=== PATIENT | male | born 1985 | race Caucasian/White ===

== ENCOUNTER 2020-03-24 20:29 | Emergency (ER) | payer OTHER, SELFPAY ==
[2020-03-24] VITALS (7 sets, daily range): BP systolic 119–139; BP diastolic 80–93; PULSE 68–105; RESP 16; TEMP 36.3; O2SAT 97–98; BMI 28.8
--- NOTE | 2020-03-24 20:46 | ED_ITS ---
HPI - Male Genitourinary General: Chief complaint: Urogenital-Male Stated complaint: urinating blood Time Seen by Provider: 03/24/20 20:46 Source: patient Mode of arrival: ambulatory Limitations: no limitations History of Present Illness: HPI Narrative: Patient is a 34-year-old male presents to ED today with a complaint of hematuria and left flank pain that began around 4 PM this afternoon. Patient tells me pain seems to be worse with urination. He has not been running any fever/chills. He denies any nausea or vomiting. No history of kidney stones. Denies abdominal pain. MD Complaint: other (L flank pain, hematuria) Onset (ago): hour(s) Duration: constant Location: left flank Severity: moderate Quality: sharp Relieving factors: none Exacerbating factors: urination Associated symptoms: Reports hematuria; Deny nausea or vomiting Review of Systems Const: Denies: fever(s) or chills Card: Denies: chest pain Resp: Denies: dyspnea GI: Denies: abdominal pain, nausea, vomiting, diarrhea or change in bowel habits : Reports: flank pain and hematuria; Denies: difficulty urinating, urinary frequency, urinary urgency, urinary hesitancy, urinary dribbling, genital pain, genital lesions, penile discharge, testicular pain or testicular mass Musc: Denies: neck pain, back pain, extremity pain, extremity swelling, joint pain or joint swelling Physical Exam Const: COMMON NORMALS: no acute distress, average body habitus, patient oriented x3, no limitations, healthy appearing, alert and well nourished Resp: COMMON NORMALS: normal respiratory effort and clear to auscultation bilaterally AUSCULTATION: clear to auscultation bilaterally Cardio: COMMON NORMALS: regular rate and regular rhythm RATE: regular rate RHYTHM: regular rhythm GI: COMMON NORMALS: Normal to inspection, nondistended, normoactive bowel sounds present, Soft to palpation, non-tender, No hepatosplenomegaly present and no masses PALPATION: Yes Soft to palpation and Yes No hepatosplenomegaly present : BLADDER/KIDNEY EXAM: Yes CVA tenderness (just inferior to L flank) Back/Pelvis: GENERAL BACK: Yes CVA tenderness (just inferior to L flank) Neuro: COMMON NORMALS: patient oriented x3 SENSORIUM/ORIENTATION: Yes alert Course Vital Signs: Vital signs: Vital Signs Temperature 97.3 F L 03/24/20 20:40 Pulse Rate 70 03/24/20 23:02 Respiratory Rate 16 03/24/20 23:02 Blood Pressure 126/80 03/24/20 23:02 Pulse Oximetry 97 03/24/20 23:02 MDM - Male MDM Narrative: Medical decision making narrative: Pt with obvious UTI on UA. He is having L sided flank pain so will cover for possible pyelo with Cipro. CT scan with no stone. No stranding around kidney to suggest pyelo. Did have some bladder wall thickening which would be consistent with his UA findings today. Strict return to ED precautions given. He was given 1g Rocephin here. Pt reports he is not sexually active, no penile discharge, or concern for STDs. Lab Data: Labs: Lab Results 03/24/20 03/24/20 03/24/20 Range/Units 21:27 21:27 22:14 WBC 9.2 (4.0-10.0) 10^3/ uL RBC 4.63 (4.1-5.3) 10^6/u L Hgb 14.1 (11.7-16.6) g/dL Hct 41.5 L (42.0-52.0) % MCV 89.6 (80-94) fL MCH 30.5 (28.0-34.0) pg MCHC 34.0 (30.0-36.0) g/dL RDW 11.9 L (12.1-15.1) % Plt Count 258 (130-400) 10^3/c mm MPV 9.9 (7.4-10.4) fL Neut % (Auto) 74.4 % Lymph % (Auto) 16.1 % [place] % (Auto) 7.7 % Eos % (Auto) 0.9 % Baso % (Auto) 0.7 % Neut # (Auto) 6.82 (1.8-7.7) 10^3/u L Lymph # (Auto) 1.5 (0.8-4.8) 10^3/u L [place] # (Auto) 0.7 (0.2-0.9) 10^3/u L Eos # (Auto) 0.1 (0.0-0.8) 10^3/u L Baso # (Auto) 0.1 (0.0-0.1) 10^3/u L Nucleated RBC % (a uto) 0 % Nucleated RBCs # 0.0 /100WBC Sodium 141 (136-145) mmol/L Potassium 3.6 (3.5-5.1) mmol/L Chloride 105 (98-107) mmol/L Carbon Dioxide 25 (22-29) mmol/L Anion Gap 14.6 (5-19) BUN 11 (6-20) mg/dL Creatinine 1.4 H (0.7-1.2) mg/dL GFR Calculation 58.7 L (90-130) mL/min Glucose 107 (65-115) mg/dL Calculated Osmolal ity 289 (285-295) mOsm/k g Calcium 10.1 (8.5-10.5) mg/dL Total Bilirubin 0.4 (0.15-1.2) mg/dL AST 17 (0-40) U/L ALT 16 (0-41) U/L Alkaline Phosphata se 73 (40-130) IU/L Total Protein 7.2 (6.6-8.7) g/dL Albumin 4.9 (3.5-5.2) g/dL Globulin 2.3 (1.3-4.6) g/dL Urine Color Brown (Yellow) Urine Appearance Cloudy (CLEAR) Urine pH 5 (5-7) Ur Specific Gravit y 1.025 (1.005-1.030) Urine Protein 3+ H (Negative) Urine Glucose (UA) Norm (Normal) Urine Ketones Negative (Negative) Urine Blood 3+ H (Negative) Urine Nitrate Positive H (Negative) Urine Bilirubin Neg (NEGATIVE) Urine Urobilinogen 1 H (Negative) mg/dL Ur Leukocyte [place] a[place] 2+ H (Negative) Urine RBC Too numerous to c nt H (0-2) /hpf Urine WBC Too numerous to c nt H (0-5) /hpf Ur Squamous Epith Cells 10-15 H (0-5) Amorphous Sediment Not Reportable Urine Bacteria 2+ H (NONE) Imaging Data: CT Abd/Pel: Radiologist's impression: [address] [address] [address] Scan Report Signed Patient: Matthew Echevarria Jr Unit #: [id number] : 1985 Age/Sex: 34 / M ADM Date: 03/24/20 Loc: ER Room/Bed: Attending Dr: Ordering Provider/Ordering MD: Marcy Lima Date of Service: 03/24/20 Procedure(s): CT kidney stone [address] Accession Number(s): [id number] Report Number: [id number] PROCEDURE INFORMATION: Exam: CT Abdomen And Pelvis Without Contrast Exam date and time: 03/24/2020 9:18 PM Age: 34 years old Clinical indication: Other: Hematuria; Abdominal pain; Flank; Left; Additional info: L flank pain; Hematuria TECHNIQUE: Imaging protocol: Computed tomography of the abdomen and pelvis without contrast. Sagittal and coronal reformatted images were created and reviewed. Radiation optimization: All CT scans at this facility use at least one of these dose optimization techniques: automated exposure control; mA and/or kV adjustment per patient size (includes targeted exams where dose is matched to clinical indication); or iterative reconstruction. COMPARISON: No relevant prior studies available. RADIATION DOSE METRICS: Total DLP (mGy-cm): 1426.45 FINDINGS: Limitations: Evaluation of solid organs and vasculature is limited without intravenous contrast. This is standard protocol for evaluation of possible urolithiasis. Lungs: Visualized lungs are clear. Calcified granulomas in the left lower lobe. Pleural space: No pleural effusion. Heart: Visualized portions of the heart are unremarkable. Liver: The liver is unremarkable. Gallbladder and bile ducts: The gallbladder is unremarkable. No biliary ductal dilatation. Pancreas: The pancreas is unremarkable. No pancreatic ductal dilatation. Spleen: The spleen is unremarkable. Small splenule in the left upper quadrant. Adrenals: The right and left adrenal glands are unremarkable. Kidneys and ureters: The right and left kidneys are unremarkable. The right and left ureters are unremarkable. No hydroureteronephrosis. No calcified urolithiasis. Stomach and bowel: Increased fecal content in the colon. Ingested contents in the stomach. The small bowel is unremarkable. Appendix: The appendix is visualized and is unremarkable. No findings to suggest acute appendicitis. Intraperitoneal space: No free intraperitoneal air. No ascites. No loculated fluid collections to suggest an abscess. Vasculature: No evidence for aortic aneurysm. Lymph nodes: No lymphadenopathy. Bladder: Diffuse, mild wall thickening of the bladder. Reproductive: Unremarkable as visualized. Bones/joints: There is a transitional vertebra at the lumbosacral junction. This is designated as L5. Soft tissues: No acute abnormality in the extra-abdominal soft tissues. CT/CT kidney stone 92192 IMPRESSION: 1. Diffuse, mild wall thickening of the bladder. In the correct clinical setting, this may suggest cystitis. Recommend correlation with laboratory findings. Alternatively, this may be secondary to chronic outlet obstruction. 2. Incidental/nonacute findings are listed in the report. Radiation Dose CTDIVOL = (mGy): DLP = 1426.45 (mGy-cm) Dictated By: Cori Pickard MD Signed By: Cori Pickard MD Signed Date/Time: 03/24/202155 DD/ 54 Discharge Plan Discharge Patient Disposition: Home Clinical Impression: Complicated urinary tract infection Condition: Stable Prescriptions: New Cipro 500 mg tablet 500 mg PO Q12H Qty: 14 RF: 0 Discharge Orders: Discharge Order (Routine); Ordered 03/24/20 Ordered By: Marcy Lima Patient Instructions: Urinary Tract Infection in Men (ED), Acute Pyelonephritis (ED), Flank Pain (ED) Activity Restrictions/Additional Instructions: As discussed you need to return to the emergency department for worsening flank pain, fevers greater than 100.4, nausea/vomiting, inability to keep down your antibiotics, or any other concerns you may have. If symptoms do not improve after antibiotic therapy [facility] and referral to [facility]rology. Coding Level of Care Code ED Color Television Console Monitor for [place]g Fwd Exam Detailed
--- NOTE | 2020-03-24 21:06 | CTR_ITS ---
PROCEDURE INFORMATION: Exam: CT Abdomen And Pelvis Without Contrast Exam date and time: 03/24/2020 9:18 PM Age: 34 years old Clinical indication: Other: Hematuria; Abdominal pain; Flank; Left; Additional info: L flank pain; Hematuria TECHNIQUE: Imaging protocol: Computed tomography of the abdomen and pelvis without contrast. Sagittal and coronal reformatted images were created and reviewed. Radiation optimization: All CT scans at this facility use at least one of these dose optimization techniques: automated exposure control; mA and/or kV adjustment per patient size (includes targeted exams where dose is matched to clinical indication); or iterative reconstruction. COMPARISON: No relevant prior studies available. RADIATION DOSE METRICS: Total DLP (mGy-cm): 1426.45 FINDINGS: Limitations: Evaluation of solid organs and vasculature is limited without intravenous contrast. This is standard protocol for evaluation of possible urolithiasis. Lungs: Visualized lungs are clear. Calcified granulomas in the left lower lobe. Pleural space: No pleural effusion. Heart: Visualized portions of the heart are unremarkable. Liver: The liver is unremarkable. Gallbladder and bile ducts: The gallbladder is unremarkable. No biliary ductal dilatation. Pancreas: The pancreas is unremarkable. No pancreatic ductal dilatation. Spleen: The spleen is unremarkable. Small splenule in the left upper quadrant. Adrenals: The right and left adrenal glands are unremarkable. Kidneys and ureters: The right and left kidneys are unremarkable. The right and left ureters are unremarkable. No hydroureteronephrosis. No calcified urolithiasis. Stomach and bowel: Increased fecal content in the colon. Ingested contents in the stomach. The small bowel is unremarkable. Appendix: The appendix is visualized and is unremarkable. No findings to suggest acute appendicitis. Intraperitoneal space: No free intraperitoneal air. No ascites. No loculated fluid collections to suggest an abscess. Vasculature: No evidence for aortic aneurysm. Lymph nodes: No lymphadenopathy. Bladder: Diffuse, mild wall thickening of the bladder. Reproductive: Unremarkable as visualized. Bones/joints: There is a transitional vertebra at the lumbosacral junction. This is designated as L5. Soft tissues: No acute abnormality in the extra-abdominal soft tissues. CT/CT kidney stone [id number] IMPRESSION: 1. Diffuse, mild wall thickening of the bladder. In the correct clinical setting, this may suggest cystitis. Recommend correlation with laboratory findings. Alternatively, this may be secondary to chronic outlet obstruction. 2. Incidental/nonacute findings are listed in the report. Radiation Dose CTDIVOL = (mGy): DLP = 1426.45 (mGy-cm)
[2020-03-24] MEDS: morphine 4 mg/mL SDV 1 mL IVP (21:27)
[2020-03-24] MEDS: ondansetron 2 mg/ML SDV 2 mL 4 MG IVP (21:28)
[2020-03-24] MEDS: sodium chloride 0.9% 1,000 ML 999 ML IV (21:28)
[2020-03-24 21:37] LABS: Basophils # 0.1 10^3/uL (0.0-0.1); Basophils % 0.7 %; Eosinophils # 0.1 10^3/uL (0.0-0.8); Eosinophils % 0.9 %; Hematocrit 41.5 % (42.0-52.0); Hemoglobin 14.1 g/dL (11.7-16.6); Lymphocytes # 1.5 10^3/uL (0.8-4.8); Lymphocytes % 16.1 %; Mean Corpuscular Hemoglobin 30.5 pg (28.0-34.0); Mean Corpuscular Volume 89.6 fL (80-94); Mean Platelet Volume 9.9 fL (7.4-10.4); Monocytes # 0.7 10^3/uL (0.2-0.9); Monocytes % 7.7 %; Neutrophils # 6.82 10^3/uL (1.8-7.7); Neutrophils % 74.4 %; Nucleated Red Blood Cells % 0 %; Platelet Count 258 10^3/cmm (130-400); Red Blood Count 4.63 10^6/uL (4.1-5.3); Red Cell Distribution Width 11.9 % (12.1-15.1); White Blood Count 9.2 10^3/uL (4.0-10.0)
[2020-03-24 21:56] LABS: Alanine Aminotransferase 16 U/L (0-41); Albumin Level 4.9 g/dL (3.5-5.2); Alkaline Phosphatase 73 IU/L (40-130); Anion Gap 14.6 (5-19); Aspartate Amino Transferase 17 U/L (0-40); Blood Urea Nitrogen 11 mg/dL (6-20); Calcium 10.1 mg/dL (8.5-10.5); Carbon Dioxide 25 mmol/L (22-29); Chloride 105 mmol/L (98-107); Globulin 2.3 g/dL (1.3-4.6); Glomerular Filtration Rate 58.7 mL/min (90-130); Glucose 107 mg/dL (65-115); Osmolality Calculated 289 mOsm/kg (285-295); Potassium 3.6 mmol/L (3.5-5.1); Sodium 141 mmol/L (136-145); Total Bilirubin 0.4 mg/dL (0.15-1.2); Total Protein 7.2 g/dL (6.6-8.7)
[2020-03-24 23:05] LABS: Add Urine Microscopic? YES; Bilirubin Urine Neg (NEGATIVE); Blood Urine 3+ (Negative); Glucose Urine UA Norm (Normal); Ketones Urine Negative (Negative); Leukocyte Esterase Urine 2+ (Negative); Nitrate Urine Positive (Negative); Protein Urine 3+ (Negative); Specific Gravity, Urine 1.025 (1.005-1.030); Urine Appearance Cloudy (CLEAR); Urine Color Brown (Yellow); Urobilinogen Urine 1 mg/dL (Negative); pH Urine 5 (5-7)
[2020-03-24 23:06] LABS: Add Urine Culture? Yes; Bacteria Urine 2+; RBC Urine TOO NUMEROUS TO CNT /hpf (0-2); WBC Urine TOO NUMEROUS TO CNT /hpf (0-5)
[2020-03-24] MEDS: cefTRIAXone 1,000 MG in sodium chloride 0.9% (plus) 50 ML 100 MG IV (23:13)
== END 2020-03-24 23:35 | disposition home or self-care (01) ==
PROVIDERS: Emergency Medicine; Emergency Provider Physician Assistant
DX: N39.0 Urinary tract infection, site not specified (principal)
CPT/HCPCS: 12345; 74176; 80053; 81001; 81003; 85025; 87086; 96360; 96361; 96365; 96375; 99283; 99284; J0696; J2270; J2405; J7030